=== PATIENT | male | born 2000 | race Caucasian/White ===

== ENCOUNTER → 2023-06-09 15:14 | Outpatient (REF) | payer BC, SELFPAY ==
[2023-06-13 12:06] LABS: HPV, High Risk Not Detected; HPV, High Risk Source Anal
== END ==
LOC: CLAB 15:14
PROVIDERS: ATTENDING PHYSICIAN Surgery
DX: Z11.51 Encounter for screening for human papillomavirus (HPV) (principal)
CPT/HCPCS: 87624; 88112

== ENCOUNTER → 2023-06-25 14:43 | Outpatient (REF) | payer BC, SELFPAY ==
[2023-06-25 16:47] LABS: ALT (SGPT) 16 U/L (0-50); AST (SGOT) 19 U/L (17-59); Albumin 4.7 g/dl (3.5-5.0); Alkaline Phosphatase 40 U/L (38-126); Blood Urea Nitrogen 15 mg/dl (9-20); Calcium 9.9 mg/dl (8.4-10.2); Carbon Dioxide 24 mmol/L (22-30); Chloride 103 mmol/L (98-107); Glucose 96 mg/dl (70-99); Potassium 4.5 mmol/L (3.5-5.1); Sodium 137 mmol/L (135-145); Total Bilirubin 0.3 mg/dl (0.2-1.3); Total Protein 7.2 g/dl (6.3-8.2); eGFR > 60.00
== END ==
LOC: REG 14:43
PROVIDERS: ATTENDING PHYSICIAN Nurse Practitioner Adult Health
DX: Z51.81 Encounter for therapeutic drug level monitoring (principal); F41.9 Anxiety disorder, unspecified; F32.9 Major depressive disorder, single episode, unspecified
CPT/HCPCS: 36415; 80053

== ENCOUNTER → 2023-08-11 03:46 | Outpatient (REF) | payer BC, SELFPAY | LOC: CLAB 03:46 | PROVIDERS: ATTENDING PHYSICIAN Surgery | DX: R85.610 Atypical squamous cells of undetermined significance on cytologic smear of anus (ASC-US) (principal) | CPT/HCPCS: 88304; 88305 ==